=== PATIENT | male | born 1940 | race Caucasian/White ===

== ENCOUNTER 2021-11-02 13:04 | Inpatient (IN) | payer MEDICARE ==
[2021-11-02 15:38] VITALS: BMI 26.2
[2021-11-02] MEDS ORDERED: Metoprolol Tartrate 5 MG/5 ML VIAL IVP SCH ×2 (16:44→17:30)
[2021-11-02] MEDS ORDERED: Acetaminophen 325 MG TAB PO PRN (16:45)
[2021-11-02] MEDS ORDERED: cefTRIAXone\\ROCEPHIN 1 GM in Sodium Chloride 0.9% 100 ML IVPB SCH (17:00)
[2021-11-02] MEDS ORDERED: Azithromycin 250 MG TAB PO SCH (17:00)
[2021-11-02] MEDS ORDERED: Diltiazem 125 MG in Sodium Chloride 0.9% 100 ML IVPB SCH ×3 (17:30→21:30)
[2021-11-02] MEDS: Apixaban 2.5 MG TAB PO SCH (20:37)
[2021-11-03] MEDS ORDERED: Metoprolol Tartrate 5 MG/5 ML VIAL IVP SCH (04:00)
[2021-11-03] MEDS: Diltiazem 125 MG in Sodium Chloride 0.9% 100 ML IVPB SCH ×3 (04:39→20:52)
[2021-11-03 04:47] LABS: #Eosinphils 0.2 thou/uL (0.0-0.7); #Lymphocytes 1.4 thou/uL (1.20-3.40); #Monocytes 0.9 thou/uL (0.11-0.59); #Neutrophils 6.2 thou/uL (1.40-6.50); %Basophils 0.2 % (0.0-1.0); %Eosinophils 2.6 % (0.0-10.0); %Lymphocytes 15.8 % (21.0-51.0); %Monocytes 10.7 % (0.0-10.0); %Neutrophils 70.7 % (42.0-75.0); Hemoglobin 12.6 g/dL (14.0-18.0); Mean Corpuscular HGB CONC 32.6 g/dL (32.0-36.0); Mean Corpuscular Hemoglobin 32.9 pg (27.0-31.0); Mean Platelet Volume 7.6 fL (7.4-10.4); Platelet Count 214 thou/uL (130-400); RBC Distribution Width 12.3 % (11.5-14.5); Red Blood Cell (RBC) Count 3.83 mill/uL (4.70-6.10); White Blood Cell (WBC) Count 8.8 thou/uL (4.8-10.8)
[2021-11-03 05:06] LABS: ALT (SGPT) 15 U/L (8-55); AST (SGOT) 13 U/L (5-34); Albumin 3.1 g/dL (3.4-4.8); Alkaline Phosphatase 57 U/L (40-110); Anion Gap 15 mmol/L (10-20); BUN (Urea Nitrogen) 24 mg/dL (8.4-25.7); Calc. Creatinine Clearance 41 mL/min (70-130); Calcium 8.3 mg/dL (7.8-10.44); Carbon Dioxide 22 mmol/L (23-31); Chloride 106 mmol/L (98-107); Globulin 2.7 g/dL (2.4-3.5); Glucose 80 mg/dL (83-110); Potassium 4.5 mmol/L (3.5-5.1); Protein, Total 5.8 g/dL (5.8-8.1); Sodium 138 mmol/L (136-145)
[2021-11-03] MEDS: Aspirin Chewable 81 MG TAB PO SCH (09:16)
[2021-11-03] MEDS: Apixaban 2.5 MG TAB PO SCH ×2 (09:16→20:52)
[2021-11-03] MEDS: Lisinopril 10 MG TAB PO SCH (09:16)
[2021-11-03] MEDS: Doxazosin Mesylate 4 MG TAB PO SCH (10:25)
[2021-11-03 12:04] LABS: Creatinine, Urine 51.65 mg/dL (63-166)
[2021-11-03] MEDS ORDERED: Benzonatate 100 MG CAP PO PRN (13:27)
[2021-11-03] MEDS ORDERED: Furosemide 20 MG/2 ML VIAL SLOW IVP SCH (17:00)
[2021-11-03] MEDS ORDERED: Potassium Chloride 20 MEQ TAB PO SCH (17:00)
[2021-11-03] MEDS: Dronedarone HCl 400 MG TAB PO SCH (17:14)
[2021-11-04] MEDS ORDERED: Metoprolol Tartrate 5 MG/5 ML VIAL IVP SCH ×2 (02:15→03:00)
[2021-11-04 04:19] LABS: #Eosinphils 0.2 thou/uL (0.0-0.7); #Lymphocytes 0.8 thou/uL (1.20-3.40); #Monocytes 0.9 thou/uL (0.11-0.59); #Neutrophils 5.4 thou/uL (1.40-6.50); %Basophils 0.1 % (0.0-1.0); %Eosinophils 2.7 % (0.0-10.0); %Monocytes 12.6 % (0.0-10.0); %Neutrophils 73.5 % (42.0-75.0); Hemoglobin 12.4 g/dL (14.0-18.0); Mean Corpuscular Hemoglobin 32.3 pg (27.0-31.0); Mean Platelet Volume 7.3 fL (7.4-10.4); Platelet Count 218 thou/uL (130-400); RBC Distribution Width 12.3 % (11.5-14.5); Red Blood Cell (RBC) Count 3.83 mill/uL (4.70-6.10); White Blood Cell (WBC) Count 7.4 thou/uL (4.8-10.8)
[2021-11-04 04:51] LABS: ALT (SGPT) 12 U/L (8-55); AST (SGOT) 12 U/L (5-34); Albumin 2.9 g/dL (3.4-4.8); Alkaline Phosphatase 59 U/L (40-110); Anion Gap 14 mmol/L (10-20); BUN (Urea Nitrogen) 24 mg/dL (8.4-25.7); Bilirubin, Total 0.8 mg/dL (0.2-1.2); Calc. Creatinine Clearance 38 mL/min (70-130); Calcium 8.5 mg/dL (7.8-10.44); Carbon Dioxide 25 mmol/L (23-31); Chloride 105 mmol/L (98-107); Globulin 2.7 g/dL (2.4-3.5); Glucose 123 mg/dL (83-110); Potassium 4.5 mmol/L (3.5-5.1); Protein, Total 5.6 g/dL (5.8-8.1); Sodium 139 mmol/L (136-145)
[2021-11-04] MEDS: Diltiazem 125 MG in Sodium Chloride 0.9% 100 ML IVPB SCH ×3 (05:28→21:39)
[2021-11-04] MEDS: Apixaban 2.5 MG TAB PO SCH ×2 (08:33→21:39)
[2021-11-04] MEDS: Potassium Chloride 10 MEQ TAB PO SCH (08:33)
[2021-11-04] MEDS: Dronedarone HCl 400 MG TAB PO SCH ×2 (08:33→16:57)
[2021-11-04] MEDS: Doxazosin Mesylate 4 MG TAB PO SCH (08:33)
[2021-11-04] MEDS: Aspirin Chewable 81 MG TAB PO SCH (08:34)
[2021-11-04] MEDS: Furosemide 20 MG/2 ML VIAL SLOW IVP SCH (08:34)
[2021-11-04] MEDS: Lisinopril 10 MG TAB PO SCH (08:34)
[2021-11-04] MEDS ORDERED: Lorazepam 0.5 MG TAB PO PRN (12:04)
[2021-11-05] MEDS ORDERED: Metoprolol Tartrate 5 MG/5 ML VIAL IVP SCH (04:15)
[2021-11-05] MEDS: Diltiazem 125 MG in Sodium Chloride 0.9% 100 ML IVPB SCH ×3 (05:29→13:58)
[2021-11-05 06:19] LABS: #Eosinphils 0.2 thou/uL (0.0-0.7); #Lymphocytes 0.9 thou/uL (1.20-3.40); #Monocytes 0.9 thou/uL (0.11-0.59); %Basophils 0.2 % (0.0-1.0); %Eosinophils 2.6 % (0.0-10.0); %Lymphocytes 10.9 % (21.0-51.0); %Monocytes 11.4 % (0.0-10.0); %Neutrophils 74.8 % (42.0-75.0); Hemoglobin 12.3 g/dL (14.0-18.0); Mean Corpuscular HGB CONC 32.9 g/dL (32.0-36.0); Mean Corpuscular Hemoglobin 33.3 pg (27.0-31.0); Mean Platelet Volume 7.2 fL (7.4-10.4); Platelet Count 229 thou/uL (130-400); RBC Distribution Width 12.1 % (11.5-14.5); Red Blood Cell (RBC) Count 3.71 mill/uL (4.70-6.10)
[2021-11-05 06:43] LABS: ALT (SGPT) 12 U/L (8-55); AST (SGOT) 11 U/L (5-34); Albumin 2.9 g/dL (3.4-4.8); Alkaline Phosphatase 59 U/L (40-110); Anion Gap 14 mmol/L (10-20); BUN (Urea Nitrogen) 19 mg/dL (8.4-25.7); Bilirubin, Total 0.8 mg/dL (0.2-1.2); Calc. Creatinine Clearance 36 mL/min (70-130); Calcium 7.9 mg/dL (7.8-10.44); Carbon Dioxide 25 mmol/L (23-31); Chloride 103 mmol/L (98-107); Globulin 2.8 g/dL (2.4-3.5); Glucose 117 mg/dL (83-110); Potassium 3.8 mmol/L (3.5-5.1); Protein, Total 5.7 g/dL (5.8-8.1); Sodium 138 mmol/L (136-145)
[2021-11-05] MEDS: Dronedarone HCl 400 MG TAB PO SCH ×2 (08:45→17:25)
[2021-11-05] MEDS: Lisinopril 10 MG TAB PO SCH (08:45)
[2021-11-05] MEDS: Apixaban 2.5 MG TAB PO SCH ×2 (08:45→21:29)
[2021-11-05] MEDS: Potassium Chloride 10 MEQ TAB PO SCH (08:45)
[2021-11-05] MEDS: Furosemide 20 MG/2 ML VIAL SLOW IVP SCH (08:46)
[2021-11-05] MEDS: Doxazosin Mesylate 4 MG TAB PO SCH (08:48)
[2021-11-05] MEDS: cefTRIAXone\\ROCEPHIN 1 GM in Sodium Chloride 0.9% 100 ML IVPB SCH (15:21)
[2021-11-05] MEDS: Albuterol Sulfate 1.25 MG/3 ML NEB NEB SCH ×2 (15:32→19:05)
[2021-11-05] MEDS ORDERED: FLU VACC QS2021-22(65YR UP)/PF 240 MCG/0.7 ML SYRINGE IM ONE (16:00)
[2021-11-05 18:33] LABS: Strep pneumo Urine Ag NEGATIVE (NEGATIVE)
[2021-11-05] MEDS: Doxycycline 100 MG CAP PO SCH (21:29)
[2021-11-05] MEDS: Melatonin 3 MG TAB PO SCH (21:29)
[2021-11-05] MEDS ORDERED: Lactated Ringer's 500 ML IV SCH (23:45)
[2021-11-06] MEDS: Diltiazem 125 MG in Sodium Chloride 0.9% 100 ML IVPB SCH (00:54)
[2021-11-06] MEDS: Albuterol Sulfate 1.25 MG/3 ML NEB NEB SCH ×4 (01:53→19:15)
[2021-11-06] MEDS ORDERED: Ondansetron ODT 8 MG TAB SL PRN (02:31)
[2021-11-06 04:28] LABS: #Eosinphils 0.3 thou/uL (0.0-0.7); #Lymphocytes 1.1 thou/uL (1.20-3.40); #Monocytes 0.9 thou/uL (0.11-0.59); %Basophils 0.1 % (0.0-1.0); %Eosinophils 3.5 % (0.0-10.0); %Lymphocytes 15.6 % (21.0-51.0); %Monocytes 11.8 % (0.0-10.0); Hemoglobin 11.6 g/dL (14.0-18.0); Mean Corpuscular HGB CONC 33.4 g/dL (32.0-36.0); Mean Corpuscular Hemoglobin 33.7 pg (27.0-31.0); Mean Platelet Volume 7.5 fL (7.4-10.4); Platelet Count 224 thou/uL (130-400); RBC Distribution Width 12.1 % (11.5-14.5); Red Blood Cell (RBC) Count 3.45 mill/uL (4.70-6.10); White Blood Cell (WBC) Count 7.3 thou/uL (4.8-10.8)
[2021-11-06 04:39] LABS: ALT (SGPT) 11 U/L (8-55); AST (SGOT) 11 U/L (5-34); Albumin 2.8 g/dL (3.4-4.8); Alkaline Phosphatase 57 U/L (40-110); Anion Gap 14 mmol/L (10-20); BUN (Urea Nitrogen) 18 mg/dL (8.4-25.7); Bilirubin, Total 0.6 mg/dL (0.2-1.2); Calc. Creatinine Clearance 35 mL/min (70-130); Calcium 7.6 mg/dL (7.8-10.44); Carbon Dioxide 23 mmol/L (23-31); Chloride 105 mmol/L (98-107); Globulin 2.6 g/dL (2.4-3.5); Glucose 115 mg/dL (83-110); Potassium 3.9 mmol/L (3.5-5.1); Protein, Total 5.4 g/dL (5.8-8.1); Sodium 138 mmol/L (136-145)
[2021-11-06] MEDS: Lisinopril 10 MG TAB PO SCH (08:53)
[2021-11-06] MEDS: Dronedarone HCl 400 MG TAB PO SCH ×2 (08:53→16:30)
[2021-11-06] MEDS: Doxazosin Mesylate 4 MG TAB PO SCH (08:53)
[2021-11-06] MEDS: Doxycycline 100 MG CAP PO SCH ×2 (08:53→20:37)
[2021-11-06] MEDS: Apixaban 2.5 MG TAB PO SCH ×2 (08:53→20:37)
[2021-11-06] MEDS: Potassium Chloride 10 MEQ TAB PO SCH (08:53)
[2021-11-06] MEDS ORDERED: Lactated Ringer's 500 ML IV SCH (12:15)
[2021-11-06] MEDS ORDERED: Sodium Chloride 0.9% 500 ML IVPB SCH (15:15)
[2021-11-06] MEDS: cefTRIAXone\\ROCEPHIN 1 GM in Sodium Chloride 0.9% 100 ML IVPB SCH (16:30)
[2021-11-06] MEDS: Melatonin 3 MG TAB PO SCH (20:37)
[2021-11-07] MEDS: Albuterol Sulfate 1.25 MG/3 ML NEB NEB SCH ×4 (01:00→19:05)
[2021-11-07 04:32] LABS: #Basophils 0.1 thou/uL (0.0-0.2); #Eosinphils 0.3 thou/uL (0.0-0.7); #Monocytes 0.9 thou/uL (0.11-0.59); %Basophils 0.7 % (0.0-1.0); %Eosinophils 3.8 % (0.0-10.0); %Lymphocytes 14.1 % (21.0-51.0); %Monocytes 12.7 % (0.0-10.0); %Neutrophils 68.7 % (42.0-75.0); Mean Corpuscular Hemoglobin 32.7 pg (27.0-31.0); Mean Platelet Volume 7.8 fL (7.4-10.4); Platelet Count 216 thou/uL (130-400); RBC Distribution Width 12.2 % (11.5-14.5); Red Blood Cell (RBC) Count 3.36 mill/uL (4.70-6.10); White Blood Cell (WBC) Count 7.3 thou/uL (4.8-10.8)
[2021-11-07 04:51] LABS: ALT (SGPT) 12 U/L (8-55); AST (SGOT) 11 U/L (5-34); Albumin 2.7 g/dL (3.4-4.8); Alkaline Phosphatase 60 U/L (40-110); Anion Gap 11 mmol/L (10-20); BUN (Urea Nitrogen) 24 mg/dL (8.4-25.7); Bilirubin, Total 0.3 mg/dL (0.2-1.2); Calc. Creatinine Clearance 30 mL/min (70-130); Calcium 7.4 mg/dL (7.8-10.44); Carbon Dioxide 25 mmol/L (23-31); Chloride 107 mmol/L (98-107); Globulin 2.5 g/dL (2.4-3.5); Glucose 97 mg/dL (83-110); Potassium 4.2 mmol/L (3.5-5.1); Protein, Total 5.2 g/dL (5.8-8.1); Sodium 139 mmol/L (136-145)
[2021-11-07] MEDS: Potassium Chloride 10 MEQ TAB PO SCH (08:57)
[2021-11-07] MEDS ORDERED: Furosemide 20 MG/2 ML VIAL SLOW IVP SCH ×2 (09:15→16:00)
[2021-11-07] MEDS: Dronedarone HCl 400 MG TAB PO SCH ×2 (09:25→17:12)
[2021-11-07] MEDS: Doxycycline 100 MG CAP PO SCH ×2 (09:26→20:35)
[2021-11-07] MEDS: Doxazosin Mesylate 4 MG TAB PO SCH (09:26)
[2021-11-07] MEDS: Apixaban 2.5 MG TAB PO SCH ×2 (09:26→20:35)
[2021-11-07] MEDS ORDERED: Cefdinir 300 MG CAP PO SCH (10:15)
[2021-11-07] MEDS: Melatonin 3 MG TAB PO SCH (20:35)
[2021-11-08] MEDS: Albuterol Sulfate 1.25 MG/3 ML NEB NEB SCH ×2 (01:07→07:11)
[2021-11-08 05:04] LABS: ALT (SGPT) 14 U/L (8-55); AST (SGOT) 11 U/L (5-34); Albumin 2.9 g/dL (3.4-4.8); Alkaline Phosphatase 67 U/L (40-110); Anion Gap 11 mmol/L (10-20); BUN (Urea Nitrogen) 26 mg/dL (8.4-25.7); Bilirubin, Total 0.6 mg/dL (0.2-1.2); Calc. Creatinine Clearance 30 mL/min (70-130); Calcium 7.9 mg/dL (7.8-10.44); Carbon Dioxide 26 mmol/L (23-31); Chloride 103 mmol/L (98-107); Globulin 2.9 g/dL (2.4-3.5); Glucose 112 mg/dL (83-110); Potassium 4.4 mmol/L (3.5-5.1); Protein, Total 5.8 g/dL (5.8-8.1); Sodium 136 mmol/L (136-145)
[2021-11-08] MEDS ORDERED: Cefdinir 300 MG CAP PO SCH ×2 (09:00→10:15)
[2021-11-08] MEDS: Apixaban 2.5 MG TAB PO SCH (09:05)
[2021-11-08] MEDS: Dronedarone HCl 400 MG TAB PO SCH (09:05)
[2021-11-08] MEDS: Doxycycline 100 MG CAP PO SCH (09:06)
[2021-11-08 11:43] VITALS: BP 130/81; TEMP 98.3
== END 2021-11-08 14:45 | disposition home or self-care (01) | DRG 177 ==
LOC: 2NO 15:15
PROVIDERS: ADMIT Family Medicine; ATTEND Family Medicine
PROC: 8E0ZXY6 Isolation (ICD-10-PCS; principal; 2021-11-02)
PROC: 3E03329 Introduction of Other Anti-infective into Peripheral Vein, Percutaneous Approach (ICD-10-PCS; 2021-11-02)
DX: U07.1 COVID-19 (principal); J12.82 Pneumonia due to coronavirus disease 2019; I50.33 Acute on chronic diastolic (congestive) heart failure; N17.9 Acute kidney failure, unspecified; I13.0 Hypertensive heart and chronic kidney disease with heart failure and stage 1 through stage 4 chronic kidney disease, or unspecified chronic kidney disease; Z23 Encounter for immunization; I48.91 Unspecified atrial fibrillation; N40.0 Benign prostatic hyperplasia without lower urinary tract symptoms; J30.2 Other seasonal allergic rhinitis; J32.9 Chronic sinusitis, unspecified; N18.30 Chronic kidney disease, stage 3 unspecified; D63.1 Anemia in chronic kidney disease; Z82.3 Family history of stroke; Z79.82 Long term (current) use of aspirin; Z79.899 Other long term (current) drug therapy
CPT/HCPCS: 36415; 71045; 80053; 82570; 83880; 84145; 84300; 85025; 87449; 93306; 94640; J0696; J1940; J3490; J7030; J7120; Q0162

== ENCOUNTER 2025-06-16 10:16 | Outpatient (CLI) | payer MEDICARE | END 2025-06-16 10:17 | disposition home or self-care (01) | LOC: LABBT 10:16 | PROVIDERS: ATTEND Internal Medicine Cardiovascular Disease | DX: Z01.810 Encounter for preprocedural cardiovascular examination (principal); I48.19 Other persistent atrial fibrillation; K62.5 Hemorrhage of anus and rectum; D50.9 Iron deficiency anemia, unspecified | CPT/HCPCS: 80053; 85025; 85610; 85730; 86850; 86900; 86901; 93005; 93010 ==

== ENCOUNTER 2025-08-07 10:37 | Outpatient (CLI) | payer MEDICARE ==
[2025-08-07 11:31] LABS: #Basophils 0.03 10x3/uL (0.0-0.2); #Eosinophils 0.23 10x3/uL (0.0-0.7); #Monocytes 1.03 10x3/uL (0.11-0.59); #Neutrophils 5.37 10x3/uL (1.40-6.50); %Basophils 0.4 % (0.0-1.0); %Eosinophils 2.9 % (0.0-10.0); %Lymphocytes 16.5 % (21.0-51.0); %Monocytes 12.9 % (0.0-10.0); %Neutrophils 66.9 % (42.0-75.0); Hematocrit 45.8 % (42.0-52.0); Hemoglobin 14.7 g/dL (14.0-18.0); Mean Corpuscular Hemoglobin 29.4 pg (27.0-31.0); Mean Corpuscular Volume 91.6 fL (78.0-98.0); Platelet Count 259 10x3/uL (130-400); Red Blood Cell (RBC) Count 5.00 mill/uL (4.70-6.10); White Blood Cell (WBC) Count 8.01 10x3/uL (4.8-10.8)
[2025-08-07 11:52] LABS: Anion Gap 13 mmol/L (10-20); BUN (Urea Nitrogen) 26 mg/dL (8.4-25.7); Calc. Creatinine Clearance 0 mL/min (70-130); Calcium 9.0 mg/dL (7.8-10.44); Carbon Dioxide 30 mmol/L (23-31); Chloride 102 mmol/L (98-107); Glucose 95 mg/dL (83-110); INR-International Normal Ratio 1.1; PTT 32.8 sec (22.9-36.1); Potassium 4.4 mmol/L (3.5-5.1); Prothrombin Time 14.7 sec (12.0-14.7); Sodium 141 mmol/L (136-145)
== END 2025-08-07 10:38 | disposition home or self-care (01) ==
LOC: LABBT 10:37
PROVIDERS: ATTEND Internal Medicine Cardiovascular Disease
DX: Z01.812 Encounter for preprocedural laboratory examination (principal); I48.19 Other persistent atrial fibrillation; K92.2 Gastrointestinal hemorrhage, unspecified
CPT/HCPCS: 80048; 85025; 85610; 85730